=== PATIENT | male | born 1980 | race Caucasian/White ===

== ENCOUNTER 2017-07-12 20:41 | Observation (INO) | payer BC, OTHER ==
[~2017-07-12] VITALS: Ht 175.3 cm; Wt 85.5 kg
[~2017-07-12 20:41] MED LIST: LEVO50TA6 PO; RANI150T3 PO; TRAZ100T29 PO
[2017-07-12] MEDS ORDERED: ASPIRIN 81 MG CHEW PO STA (20:52)
[2017-07-12] MEDS ORDERED: ALUMINUM/MAGNESIUM SUSP 30 ML UDC PO STA (20:52)
--- NOTE | 2017-07-12 20:59 | EMERGENCY ROOM VISIT NOTE ---
History Report prepared by [place]: Falguni Leos Under the Supervision of: Dr. Alexis Thomas D.O. First contact with patient: 20:48 Chief Complaint: CHEST PAIN Stated Complaint: CHEST PAIN, JAW PAIN, LEFT ARM PAIN History of Present Illness The patient is a 36 year old male who presents to the Emergency Room with complaints of persistent chest pain that started around 1730 this evening. He reports his pain started between his left shoulder and elbow and radiated into his chest. He rates his discomfort as a 4/10 in severity and describes it as feeling like "hot pressure". He was sitting down watching TV when his pain started. He admits to some shortness of breath on exertion and admits he is a smoker. He denies any previous cardiac history. He does admit to a similar episode last week, stating he experienced palpitations and nausea. He denies any recent pain or swelling in his legs. He was at the [place] in [place] a few weeks ago. He denies any recent abdominal pain. The patient admits to a family history of hypertension and reports his Father experienced an IN this past spring. He states his only chronic medical issues are GERD, for which he takes Zyrtec, and a history of "gastrointestinal issues". Source of History: patient Onset: 1730 this evening Position: chest Symptom Intensity: 4/10 Quality: pressure (hot pressure ) Timing: other (persistent) Associated Symptoms: No abdominal pain Review of Systems See HPI for pertinent positives & negatives. A total of 10 systems reviewed and were otherwise negative. Past Medical & Surgical Medical Problems: (1) GERD (gastroesophageal reflux disease) Family History Heart disease Hypertension Social History Smoking Status: Current Every Day Smoker Alcohol Use: occasionally Drug Use: none Marital Status: Housing Status: lives with family Occupation Status: employed Current/Historical Medications Scheduled Citalopram Hydrobromide (Celexa), 20 MG PO DAILY Levothyroxine Sodium (Levothyroxine Sodium), 50 MCG PO DAILY Multivitamin (Multivitamin), 1 TAB PO DAILY Ranitidine Hcl (Zantac), 150 MG PO DAILY Trazodone Hcl (Trazodone), 100 MG PO HS Scheduled PRN Melatonin (Melatonin Maximum Strengt), 10 MG PO HS PRN for Insomnia Allergies Coded Allergies: Metronidazole (Verified Adverse Reaction, Intermediate, GI UPSET, 07/12/17) Physical Exam Vital Signs Date Time Temp Pulse Resp B/P (MAP) Pulse Ox O2 Delivery O2 Flow Rate FiO2 07/12/17 23:38 36.5 79 18 136/94 96 Room Air 07/12/17 21:24 103 18 130/84 96 Room Air 07/12/17 21:06 36.9 101 18 141/92 97 Room Air 07/12/17 21:03 97 Room Air 07/12/17 21:03 97 Room Air 07/12/17 21:03 97 Room Air 07/12/17 20:58 105 07/12/17 20:45 36.9 109 18 145/98 98 Room Air Physical Exam GENERAL: Patient is awake, alert, in no acute distress, patient is resting comfortably and showing no signs of anxiety EYES: The conjunctivae are clear. The pupils are round and reactive. EARS, NOSE, MOUTH AND THROAT: The nose is without any evidence of any deformity. Mucous membranes are moist tongue is midline NECK: The neck is nontender and supple. RESPIRATORY: Normal respiratory effort is noted there is no evidence of wheezing rhonchi or rales CARDIOVASCULAR: Regular rate and rhythm noted there no murmurs rubs or gallops normal S1 normal S2 GASTROINTESTINAL: The abdomen is soft. Bowel sounds are present in all quadrants. Abdomen is nontender MUSCULOSKELETAL/EXTREMITIES: There is no evidence of gross deformity full range of motion is noted in the hips and shoulders SKIN: There is no obvious evidence of any rash. There are no petechiae, pallor or cyanosis noted. NEUROLOGIC: Patient is awake alert and oriented x3 Medical Decision & Procedures ER Provider Diagnostic Interpretation: Radiology results as stated below per my review and radiologist interpretation: CHEST ONE VIEW PORTABLE CLINICAL HISTORY: Chest pain. COMPARISON STUDY: No previous studies for comparison. FINDINGS: Lung volumes are normal. Lungs are clear. No pneumothorax or pleural effusion is present. Cardiomediastinal silhouette is normal. Pulmonary vascularity is normal. IMPRESSION: No acute cardiopulmonary findings. Electronically signed by: Gianluca Camp M.D. 07/12/2017 9:16 PM Laboratory Results 07/12/17 20:56 Red Blood Count 5.17, Mean Corpuscular Volume 89.6, Mean Corpuscular Hemoglobin 33.5, Mean Corpuscular Hemoglobin Concent 37.4, Mean Platelet Volume 9.3, Neutrophils (%) (Auto) 45.2, Lymphocytes (%) (Auto) 37.1, Monocytes (%) (Auto) 8.5, Eosinophils (%) (Auto) 8.0, Basophils (%) (Auto) 0.5, Neutrophils # (Auto) 4.40, Lymphocytes # (Auto) 3.61, Monocytes # (Auto) 0.83, Eosinophils # (Auto) 0.78, Basophils # (Auto) 0.05 07/12/17 20:56 Test 07/12/17 20:56 White Blood Count 9.74 K/uL (4.8-10.8) Red Blood Count 5.17 M/uL (4.7-6.1) Hemoglobin 17.3 g/dL (14.0-18.0) Hematocrit 46.3 % (42-52) Mean Corpuscular Volume 89.6 fL (80-100) Mean Corpuscular Hemoglobin 33.5 pg (25-34) Mean Corpuscular Hemoglobin Concent 37.4 g/dl (32-36) Platelet Count 245 K/uL (130-400) Mean Platelet Volume 9.3 fL (7.4-10.4) Neutrophils (%) (Auto) 45.2 % Lymphocytes (%) (Auto) 37.1 % Monocytes (%) (Auto) 8.5 % Eosinophils (%) (Auto) 8.0 % Basophils (%) (Auto) 0.5 % Neutrophils # (Auto) 4.40 K/uL (1.4-6.5) Lymphocytes # (Auto) 3.61 K/uL (1.2-3.4) Monocytes # (Auto) 0.83 K/uL (0.11-0.59) Eosinophils # (Auto) 0.78 K/uL (0-0.5) Basophils # (Auto) 0.05 K/uL (0-0.2) RDW Standard Deviation 41.0 fL (36.4-46.3) RDW Coefficient of Variation 12.6 % (11.5-14.5) Immature Granulocyte % (Auto) 0.7 % Immature Granulocyte # (Auto) 0.07 K/uL (0.00-0.02) Prothrombin Time 11.3 SECONDS (9.0-12.0) Prothromb Time International Ratio 1.1 (0.9-1.1) Activated Partial Thromboplast Time 28.9 SECONDS (21.0-31.0) Partial Thromboplastin Ratio 1.1 Anion Gap 9.0 mmol/L (3-11) Est Creatinine Clear Calc Drug Dose 94.4 ml/min Estimated GFR () 90.9 Estimated GFR (Non- 78.4 BUN/Creatinine Ratio 10.8 (10-20) Calcium Level 8.7 mg/dl (8.5-10.1) Magnesium Level 2.2 mg/dl (1.8-2.4) Total Bilirubin 0.6 mg/dl (0.2-1) Direct Bilirubin 0.2 mg/dl (0-0.2) Aspartate Amino Transf (AST/SGOT) 20 U/L (15-37) Alanine Aminotransferase (ALT/SGPT) 45 U/L (12-78) Alkaline Phosphatase 77 U/L (45-117) Total Creatine Kinase 76 U/L (39-308) Creatine Kinase MB 1.1 ng/ml (0.5-3.6) Creatine Kinase MB Ratio 1.4 (0-3.0) Troponin I < 0.015 ng/ml (0-0.045) Total Protein 7.5 gm/dl (6.4-8.2) Albumin 4.2 gm/dl (3.4-5.0) Lipase 86 U/L (73-393) Laboratory results per my review. Medications Administered Medications (Trade) Dose Ordered Sig/Joslyn Route Start Time Stop Time Status Last Admin Dose Admin Aspirin (Aspirin Chew) 324 mg NOW STAT PO 07/12/17 20:52 07/12/17 20:53 DC 07/12/17 21:01 324 MG Al Hydroxide/Mg Hydroxide (Maalox Susp) 30 ml NOW STAT PO 07/12/17 20:52 07/12/17 20:53 DC 07/12/17 21:01 30 ML Nitroglycerin (Nitrostat Tab) 0.4 mg STK-MED ONCE .ROUTE 07/12/17 21:20 07/12/17 21:21 DC 07/12/17 21:23 0.4 MG Potassium Chloride (Klor-Con M10) 40 meq NOW STAT PO 07/12/17 22:58 07/12/17 23:01 DC 07/12/17 23:17 40 MEQ ECG Indication: chest pain Rate (beats per minute): 107 Rhythm: sinus tachycardia Findings: no ectopy, other (No acute ST segment abnormalities) Change: Repeat EKG on 07/12/17: Normal sinus rhythm, rate of 70, no ectopy, no acute ST segments, decreased rate otherwise no change from earlier tracing. ED Course 2048: The patient was evaluated in room A12. A complete history and physical examination were performed. 2051: Maalox Susp 30 ml PO, Aspirin 324 mg PO. 2119: Nitroglycerin 0.4 mg IV. 2235: I discussed the patients case with Salty Don. The patient will be further evaluated. 2257: Potassium Chloride 40 meq PO. 2314: I reevaluated the patient. He is resting comfortably. I discussed his results and discharge instructions and he verbalized complete understanding and agreement. Medical Decision Prior records/ancillary studies reviewed. Triage Nursing notes reviewed. The patient's history was concerning for chest pain. Differential diagnosis: Etiologies such as cardiac ischemia, aortic dissection, pulmonary embolism, pneumonia, pneumothorax, musculoskeletal, infections, pericarditis, myocarditis , esophageal rupture, gastrointestinal, as well as others were entertained. The patient is a 36-year-old male who presented to the emergency department with left-sided chest pain associated radiation to the left arm and neck. The patient was initially treated with aspirin and Maalox in the emergency department. He had return of his pain with radiation to the neck and diaphoresis. The patient's repeat EKG showed no acute changes. He was treated with nitroglycerin with good relief. I discussed the patient's laboratory and radiographic studies with him. I also discussed the limitations of the emergency department workup for chest pain with him. Given the patient's risk factors and description of pain I [facility]'ve agreed to evaluate the patient in the emergency department for further management and disposition. Medication Reconcilliation Current Medication List: was personally reviewed by me Blood Pressure Screening Patient's blood pressure: Elevated blood pressure Blood pressure disposition: Elevated BP felt to be situational Consults Time Called: 2229 Consulting Physician: Salty Don Returned Call: 2235 I discussed the patients case with Salty Don. The patient will be further evaluated. Impression Primary Impression: Left sided chest pain Scribe Attestation The scribe's documentation has been prepared under my direction and personally reviewed by me in its entirety. I confirm that the note above accurately reflects all work, treatment, procedures, and medical decision making performed by me. Departure Information Dispostion Being Evaluated By Hospitalist Referrals Ronen Dallas M.D. (PCP) Patient Instructions My [facility]
[2017-07-12] MEDS ORDERED: CITA20TA9 PO (21:05)
[2017-07-12] MEDS ORDERED: MELATAB2 PO (21:06)
[2017-07-12 21:07] LABS: BASO % 0.5 %; BASO ABS # 0.05 K/uL (0-0.2); COMPLETE YES; HEMATOCRIT 46.3 % (42-52); IG% 0.7 %; LYMPH % 37.1 %; LYMPH ABS # 3.61 K/uL (1.2-3.4); MEAN CELL VOLUME 89.6 fL (80-100); MEAN CORPUSCULAR HEMOGLOBIN 33.5 pg (25-34); MEAN CORPUSCULAR HGB CONC 37.4 g/dl (32-36); MEAN PLATELET VOLUME 9.3 fL (7.4-10.4); MONO % 8.5 %; NEUT % 45.2 %; PLATELET COUNT 245 K/uL (130-400); RED BLOOD COUNT 5.17 M/uL (4.7-6.1); WHITE BLOOD COUNT 9.74 K/uL (4.8-10.8)
[2017-07-12] MEDS ORDERED: MULT-506 PO (21:07)
[2017-07-12 21:17] LABS: INR 1.1 (0.9-1.1); PARTIAL THROMBOPLASTIN RATIO 1.1; PROTHROMBIN TIME (PATIENT) 11.3 SECONDS (9.0-12.0)
--- NOTE | 2017-07-12 21:17 | DIAGNOSTIC IMAGING REPORT ---
CHEST ONE VIEW PORTABLE CLINICAL HISTORY: Chest pain. COMPARISON STUDY: No previous studies for comparison. FINDINGS: Lung volumes are normal. Lungs are clear. No pneumothorax or pleural effusion is present. Cardiomediastinal silhouette is normal. Pulmonary vascularity is normal. IMPRESSION: No acute cardiopulmonary findings. Electronically signed by: Gianluca Camp M.D. 07/12/2017 9:16 PM Dictated Date/Time: 07/12/2017 9:15 PM
[2017-07-12] MEDS ORDERED: NITROGLYCERIN 0.4 MG SL PER TAB CHARGE ONE (21:20)
[2017-07-12] MEDS ORDERED: NURSING VERBAL MED ORDER ONE (21:30)
[2017-07-12 21:59] LABS: ALT/SGPT 45 U/L (12-78); BLOOD UREA NITROGEN 13 mg/dl (7-18); BUN/CREATININE RATIO 10.8 (10-20); CALCIUM 8.7 mg/dl (8.5-10.1); CARBON DIOXIDE 25 mmol/L (21-32); CHLORIDE 106 mmol/L (98-107); GLUCOSE 91 mg/dl (70-99); POTASSIUM 3.4 mmol/L (3.5-5.1); SODIUM 140 mmol/L (136-145)
[2017-07-12 22:04] LABS: ALKALINE PHOSPHATASE 77 U/L (45-117); AST/SGOT 20 U/L (15-37); CKMB/CK RATIO 1.4 (0-3.0)
[2017-07-12] MEDS ORDERED: NITROGLYCERIN 0.4 MG SL PER TAB CHARGE SL STA (22:23)
[2017-07-12] MEDS ORDERED: POTASSIUM CHLORIDE 10 MEQ TABCR PO STA (22:58)
[2017-07-12 23:10] LABS: MAGNESIUM 2.2 mg/dl (1.8-2.4)
[2017-07-13] VITALS (8 sets, daily range): BP systolic 110–153; BP diastolic 65–99; PULSE 71–80; TEMP 36.6–37; O2SAT 96–98; Ht 175.3 cm; Wt 85.5 kg
[2017-07-13] MEDS ORDERED: TRAZODONE HCL 100 MG TAB PO ONE (00:01)
[2017-07-13] MEDS ORDERED: LORAZEPAM 0.5 MG TAB PO PRN (00:15)
[2017-07-13] MEDS ORDERED: NITROGLYCERIN 0.4 MG SL PER TAB CHARGE SL PRN (00:15)
[2017-07-13] MEDS ORDERED: TRAMADOL HCL 50 MG TAB PO PRN (00:15)
[2017-07-13] MEDS ORDERED: MoRPHine SULFATE 4 MG/ML 1 ML CARP\\VIAL IV PRN (00:15)
[2017-07-13] MEDS ORDERED: ACETAMINOPHEN 325 MG TAB PO PRN (00:15)
[2017-07-13] MEDS ORDERED: OPTIRAY 320 IV PRN (00:15)
[2017-07-13] MEDS ORDERED: ONDANSETRON INJ 2 MG/ML 2 ML VIAL IV PRN (00:15)
[2017-07-13] MEDS ORDERED: IV FLUIDS COMPLETED PRN (00:30)
[2017-07-13] MEDS ORDERED: LACTATED RINGER'S 1000ML 1,000 ML IV SCH (01:15)
--- NOTE | 2017-07-13 01:46 | HISTORY & PHYSICAL EXAMINATION ---
DATE OF ADMISSION: 07/12/2017 PRIMARY CARE DOCTOR: Dr. Dallas. CHIEF COMPLAINT: Chest pain. HISTORY OF PRESENT ILLNESS: History is obtained from patient and records. Medical history significant for mood disorder, hypothyroidism, ongoing tobacco abuse. Recent confinement 2010 for C. diff colitis. Patient was watching television yesterday afternoon, when he felt queasy later noted left-sided chest discomfort going to the arm, pressure like, some shortness of breath, sweatiness. palpitations. Symptoms different from usual reflux symptoms. Usual smoker's cough symptoms. At the Emergency Room some relief of discomfort with Maalox, Nitrostat, and aspirin. While at the Emergency Room, the patient experienced left-sided abdominal cramping and diarrhea, some nausea. Nonbloody. No fever, no chills, no sick contacts, no recent antibiotics. Recent travel to [place] last week. MEDICAL HISTORY: As above. SURGICAL HISTORY: As above. HOME MEDICATIONS: Include trazodone, citalopram, levothyroxine, ranitidine, and melatonin. ALLERGIES: ALLERGIC TO FLAGYL. FAMILY HISTORY: Heart disease. 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 REVIEW OF SYSTEMS: As per HPI, all other ROS negative. PHYSICAL EXAMINATION: VITAL SIGNS: Blood pressure was noted to be 145/98, pulse rate 109, later 79. RR 18, temperature 37, O2 sats 98% on room air. GENERAL: Noted to be slightly anxious, no respiratory distress. SKIN: Normal color, dry. HEENT: Partial alopecia, pink palpebral conjunctivae, dry mucosa. NECK: Supple. No tenderness, midline trachea. CHEST: Clear to auscultation, minimal L anterior chest wall tenderness. CARDIOVASCULAR: regular rate and rhythm, no murmur, palpable lower extremity pulses. ABDOMEN: Some distension, tenderness in the left lower quadrant. EXTREMITIES: No edema, no gross LE deformities, no tenderness. NEUROLOGIC: No gross focality, coherent. LABS: Hemoglobin was noted to be 14, hematocrit 46.3, white blood cell count 10, platelet 245. Sodium 140, potassium 3.3, chloride 106, CO2 of 25, BUN 13, creatinine 1.2. Glucose was noted to be 91. LFTs, lipase normal. Troponin is negative. IMAGING: Chest x-ray, no acute pathology. EKG as per my interpretation, rate 105, sinus tachycardia, no ischemia. CT abdomen and pelvis initial read possible colitis ASSESSMENT: 1. Chest pain possibly from acute viral gastroenteritis ro recurrent cdif Some musculoskeletal component with reproducibility Anxiety contributory rule out acute coronary syndrome with some relief with nitro, left arm radiation and diaphoresis sx 2. Hypokalemia secondary to diarrhea 3. Hypothyroidism, euthyroid as of recent outpatient TSH 4. Ongoing tobacco abuse PLAN: Observation PCU Follow-up troponin. Stress test in the morning if next troponin normal analgesia, anxiolytic prn ASA for now for CAD prevention until ACS ruled out. Stool C. diff. supportive management for gastroenteritis. IVF, replace K Nicotine patch. DVT prophylaxis, Lovenox subcutaneous. Full code. MTDD
[2017-07-13 03:18] LABS: PARTIAL THROMBOPLASTIN RATIO 1.2
[2017-07-13 03:22] LABS: HEMATOCRIT 46.8 % (42-52); MEAN CELL VOLUME 91.2 fL (80-100); MEAN CORPUSCULAR HEMOGLOBIN 31.2 pg (25-34); MEAN CORPUSCULAR HGB CONC 34.2 g/dl (32-36); MEAN PLATELET VOLUME 9.4 fL (7.4-10.4); PLATELET COUNT 223 K/uL (130-400); RED BLOOD COUNT 5.13 M/uL (4.7-6.1); WHITE BLOOD COUNT 7.65 K/uL (4.8-10.8)
[2017-07-13 03:35] LABS: BLOOD UREA NITROGEN 15 mg/dl (7-18); BUN/CREATININE RATIO 13.4 (10-20); CALCIUM 8.6 mg/dl (8.5-10.1); CARBON DIOXIDE 25 mmol/L (21-32); CHLORIDE 107 mmol/L (98-107); CHOLESTEROL 143 mg/dl (0-200); CHOLESTEROL/HDL RATIO 3.6; GLUCOSE 97 mg/dl (70-99); HDL CHOLESTEROL 40 mg/dl; LDL CHOLESTEROL CALCULATED 34 mg/dl; POTASSIUM 4.3 mmol/L (3.5-5.1); SODIUM 140 mmol/L (136-145); TRIGLYCERIDES 344 mg/dl (0-150); VERY LOW DENSITY LIPOPROT CALC 69 mg/dl
[2017-07-13] MEDS ORDERED: IPRATROPIUM BROMIDE NEB SOLN 0.02% 2.5 ML VIAL INH PRN (05:30)
[2017-07-13] MEDS ORDERED: LEVALBUTEROL 1.25MG/0.5ML NEB INH PRN (05:30)
[2017-07-13] MEDS ORDERED: LEVALBUTEROL/IPRATROPIUM NEB INH PRN (05:30)
[2017-07-13] MEDS ORDERED: LEVOTHYROXINE 50 MCG TAB PO SCH (06:00)
--- NOTE | 2017-07-13 07:17 | DIAGNOSTIC IMAGING REPORT ---
ABDOMEN AND PELVIS CT WITH IV CONTRAST CT DOSE: 403.71 mGy.cm HISTORY: Left-sided abdominal pain. TECHNIQUE: Multiaxial CT images of the abdomen and pelvis were performed following the use of intravenous contrast. A dose lowering technique was utilized adhering to the principles of ALARA. COMPARISON STUDY: Abdomen and pelvis CT 02/14/2011. FINDINGS: The lung bases are clear. Increase in size in the sclerotic 2.1 cm lesion within the proximal right femur. The liver, gallbladder, spleen, adrenal glands, and kidneys are unremarkable. Normal pancreas. No retroperitoneal lymphadenopathy. Normal bladder. Normal appendix. Questionable mild thickening versus under distention within the descending colon. No evidence for bowel obstruction. IMPRESSION: 1. Mild thickening versus under distention within the descending colon. This raises the possibility of a nonspecific colitis. 2. Slight increase in size in the sclerotic lesion within the right proximal femur. Electronically signed by: Ollie Parnell M.D. 07/13/2017 7:16 AM Dictated Date/Time: 07/13/2017 7:12 AM
[2017-07-13] MEDS ORDERED: RANITIDINE HCL 150 MG TAB PO SCH (09:00)
[2017-07-13] MEDS ORDERED: ASPIRIN 325 MG ECTAB PO SCH (09:00)
[2017-07-13] MEDS ORDERED: MULTIVITAMIN TAB PO SCH (09:00)
[2017-07-13] MEDS ORDERED: ENOXAPARIN 30 MG/0.3 ML SYR SQ SCH (09:00)
[2017-07-13] MEDS ORDERED: CITALOPRAM 20 MG TAB PO SCH (09:00)
[2017-07-13] MEDS ORDERED: NICOTINE 14 MG/24 HR TDSY TD SCH (09:00)
[2017-07-13 13:30] LABS: URINE APPEARANCE CLEAR (CLEAR); URINE BILIRUBIN NEG (NEG); URINE COLOR YELLOW; URINE NITRITE NEG (NEG); URINE PH 7.5 (4.5-7.5); URINE SPECIFIC GRAVITY 1.023 (1.000-1.030); UROBILINOGEN NEG (NEG); ZZUR CULT IF INDIC CLEAN CATCH NO
[2017-07-13 13:37] LABS: MANUAL MICROSCOPIC REQUIRED? NO; REVIEW REQ? NO
--- NOTE | 2017-07-13 16:15 | Progress Note ---
Internal Med Progress Note Date of Service: Jul 13, 2017. Provider Documentation: SUBJECTIVE: patient denies chest pain or shortness of breath at time of physical exam. OBJECTIVE: Exam: General - no acute distress Eyes- EOMI ENT- no oral or nasal exudates Neck- midline trachea Lungs- clear to auscultation bilaterally Heart- regular rate, chest nontender on palpation Abdomen-soft, nontender, nondistended Extremities- no edema Neuro- no focal neurological deficits ASSESSMENT & PLAN: 36 year old M on antidepressants and on Levothyroxine for hypothyroidism with family history of heart disease at older age who presents with left sided chest pain with radiation to left shoulder. In the ED patient was given aspirin 325 mg and sublingual nitro ABDOMEN AND PELVIS CT WITH IV CONTRAST COMPARISON STUDY: Abdomen and pelvis CT 02/14/2011. FINDINGS: The lung bases are clear. Increase in size in the sclerotic 2.1 cm lesion within the proximal right femur. The liver, gallbladder, spleen, adrenal glands, and kidneys are unremarkable. Normal pancreas. No retroperitoneal lymphadenopathy. Normal bladder. Normal appendix. Questionable mild thickening versus under distention within the descending colon. No evidence for bowel obstruction. IMPRESSION: 1. Mild thickening versus under distention within the descending colon. This raises the possibility of a nonspecific colitis. 2. Slight increase in size in the sclerotic lesion within the right proximal femur. C.diff negative Cardiac telemetry patient has been in normal sinus rhythm and heart rate within normal limits Stress echo Test performed and interpreted by pet sitter: negative stress echo Hypothyroidism on Levothyroxine at home: TSH 3.3 and T4 7.5 Disposition/ diagnosis 1. Atypical chest pain based on negative troponins, negative stress test, and no telemetry events 2. Abdominal discomfort: negative C. diff, possible thickening of descending colon, is unlikely to be inflammation given no significant abdominal findings on CT imaging or on clinical exam 3. Mood disorder: follow up with primary doctor for Celexa and Trazodone 4. Hypothyroidism on Levothyroxine at home: TSH 3.3 and T4 7.5. TSH is somewhat elevated compared to available outpatient records. patient advised to follow up with his primary care doctor if needs Levothyroxine adjustment 5. Follow up with primary care doctor Dr. Gallardo on Wednesday07/19/17 on 11:05 AM Vital Signs: Date Time Temp Pulse Resp B/P (MAP) Pulse Ox O2 Delivery O2 Flow Rate FiO2 10/3/17 15:50 37.0 78 20 142/77 (98) 97 Room Air 07/13/17 12:00 Room Air 07/13/17 11:10 36.7 80 18 132/79 (96) 97 Room Air 07/13/17 08:00 98 Room Air 07/13/17 07:16 37.0 71 16 115/65 (82) 98 Room Air 07/13/17 04:00 96 Room Air 07/13/17 03:35 36.6 71 16 110/66 (81) 96 Room Air 07/13/17 01:00 36.9 75 18 153/99 97 Room Air 07/12/17 23:38 36.5 79 18 136/94 96 Room Air 07/12/17 21:24 103 18 130/84 96 Room Air 07/12/17 21:06 36.9 101 18 141/92 97 Room Air 07/12/17 21:03 97 Room Air 07/12/17 21:03 97 Room Air 07/12/17 21:03 97 Room Air 07/12/17 20:58 105 07/12/17 20:45 36.9 109 18 145/98 98 Room Air Lab Results: Results Past 24 Hours Test 07/12/17 20:56 07/13/17 00:00 07/13/17 02:59 07/13/17 10:57 Range/Units White Blood Count 9.74 7.65 4.8-10.8 K/uL Red Blood Count 5.17 5.13 4.7-6.1 M/uL Hemoglobin 17.3 16.0 14.0-18.0 g/dL Hematocrit 46.3 46.8 42-52 % Mean Corpuscular Volume 89.6 91.2 80-100 fL Mean Corpuscular Hemoglobin 33.5 31.2 25-34 pg Mean Corpuscular Hemoglobin Concent 37.4 34.2 32-36 g/dl Platelet Count 245 223 130-400 K/uL Mean Platelet Volume 9.3 9.4 7.4-10.4 fL Neutrophils (%) (Auto) 45.2 % Lymphocytes (%) (Auto) 37.1 % Monocytes (%) (Auto) 8.5 % Eosinophils (%) (Auto) 8.0 % Basophils (%) (Auto) 0.5 % Neutrophils # (Auto) 4.40 1.4-6.5 K/uL Lymphocytes # (Auto) 3.61 1.2-3.4 K/uL Monocytes # (Auto) 0.83 0.11-0.59 K/uL Eosinophils # (Auto) 0.78 0-0.5 K/uL Basophils # (Auto) 0.05 0-0.2 K/uL RDW Standard Deviation 41.0 42.3 36.4-46.3 fL RDW Coefficient of Variation 12.6 12.7 11.5-14.5 % Immature Granulocyte % (Auto) 0.7 % Immature Granulocyte # (Auto) 0.07 0.00-0.02 K/uL Prothrombin Time 11.3 9.0-12.0 SECONDS Prothromb Time International Ratio 1.1 0.9-1.1 Activated Partial Thromboplast Time 28.9 29.9 21.0-31.0 SECONDS Partial Thromboplastin Ratio 1.1 1.2 Sodium Level 140 140 136-145 mmol/L Potassium Level 3.4 4.3 3.5-5.1 mmol/L Chloride Level 106 107 98-107 mmol/L Carbon Dioxide Level 25 25 21-32 mmol/L Anion Gap 9.0 8.0 3-11 mmol/L Blood Urea Nitrogen 13 15 7-18 mg/dl Creatinine 1.20 1.10 0.60-1.40 mg/dl Est Creatinine Clear Calc Drug Dose 94.4 102.6 ml/min Estimated GFR () 90.9 101.0 Estimated GFR (Non- 78.4 87.1 BUN/Creatinine Ratio 10.8 13.4 10-20 Random Glucose 91 97 70-99 mg/dl Calcium Level 8.7 8.6 8.5-10.1 mg/dl Magnesium Level 2.2 1.8-2.4 mg/dl Total Bilirubin 0.6 0.2-1 mg/dl Direct Bilirubin 0.2 0-0.2 mg/dl Aspartate Amino Transf (AST/SGOT) 20 15-37 U/L Alanine Aminotransferase (ALT/SGPT) 45 12-78 U/L Alkaline Phosphatase 77 45-117 U/L Total Creatine Kinase 76 39-308 U/L Creatine Kinase MB 1.1 0.5-3.6 ng/ml Creatine Kinase MB Ratio 1.4 0-3.0 Troponin I < 0.015 < 0.015 < 0.015 0-0.045 ng/ml Total Protein 7.5 6.4-8.2 gm/dl Albumin 4.2 3.4-5.0 gm/dl Lipase 86 73-393 U/L Urine Color YELLOW Urine Appearance CLEAR CLEAR Urine pH 7.5 4.5-7.5 Urine Specific [place] 1.023 1.000-1.030 Urine Protein NEG NEG Urine Glucose (UA) NEG NEG Urine Ketones NEG NEG Urine Occult Blood NEG NEG Urine Nitrite NEG NEG Urine Bilirubin NEG NEG Urine Urobilinogen NEG NEG Urine Leukocyte Esterase NEG NEG Triglycerides Level 344 0-150 mg/dl Cholesterol Level 143 0-200 mg/dl HDL Cholesterol 40 mg/dl LDL Cholesterol, Calculated 34 mg/dl VLDL Cholesterol, Calculated 69 mg/dl Cholesterol/HDL Ratio 3.6 Thyroid Stimulating Hormone (TSH) 3.300 0.300-4.500 uIu/ml Thyroxine (T4) 7.5 4.5-10.9 mcg/dl Microbiology Results 07/13/17 C.difficile Toxin B Gene (PCR) - Final, Complete No C. difficile toxin B gene detected
--- NOTE | 2017-07-13 16:31 | EXERCISE STRESS ECHO ---
*NOTICE TO RECEIVING [employer] This information is strictly Confidential and protected under [place] law. [place] law prohibits you from making any further disclosure of this information unless further disclosure is expressly permitted by the written consent of the person to whom it pertains or is authorized by law. A general authorization for the release of medical or other information is not sufficient for this purpose. Hospital accepts no responsibility if the information is made available to any other person, INCLUDING THE PATIENT. Interpretation Summary * Name: RANDELL WHITTINGTON Study Date: 07/13/2017 01:38 PM BP: 136/84 mmHg * Patient Location: .2T\S\E218\S\1 HR: 77 * : 1980 (M/d/yyyy) Gender: Male Height: 69 in * Age: 36 yrs Ethnicity: CA Weight: 188 lb * Ordering Physician: Evaristo Landers * Referring Physician: Self, Referred * Performed By: Luisana Serrano [facility] * * Reason For Study: CHEST PAIN * BSA: 2.0 m2 * The exercise echocardiographic examination is normal without resting left ventricular wall motion abnormalities or inducible ischemia. * _ workload achieved. Procedure Details * ECHOEX, CPT #[id number] * ECHO COLOR FLOW, CPT #[id number] * ECHO DOPPLER, CPT #[id number] Left Ventricle * The left ventricle is normal in size. * There is moderate concentric left ventricular hypertrophy. * Left ventricular systolic function is normal. * Ejection Fraction = 60-65%. * Resting wall motion: Normal. Stress wall motion: Appropriate increase in Left ventricular systolic function and decrease in cavity size. No stress induced segmental wall motion abnormalities. Right Ventricle * The right ventricle is normal in size and function. Atria * The left atrial size is normal. * Right atrial size is normal. * No ASD detected; PFO is not assessed. Mitral Valve * The mitral valve anatomy is normal. * There is no mitral valve stenosis. * There is trace mitral regurgitation. Tricuspid Valve * The tricuspid valve anatomy is normal. * There is no tricuspid stenosis. * There is trace tricuspid regurgitation. Aortic Valve * The aortic valve is trileaflet. * No hemodynamically significant valvular aortic stenosis. * No aortic regurgitation is present. Pulmonic Valve * The pulmonic valve is not well visualized. Great Vessels * The aortic root is normal size. Pericardium * There is no pericardial effusion. Stress Parameters * Normal baseline electrocardiogram. * Stress ECG: No ST changes. No arrhythmias. * No arrhythmia were noted with stress. * The stress portion of this study was personally supervised by the undersigned interpreting physician. * Rest heart rate was '77' BPM. * Rest blood pressure was '136/84' * Maximum heart rate achieved was 171 bpm. * Maximum heart rate was 91 % of maximum age-predicted heart rate. * Maximum blood pressure was '205/91' * Total exercise time was '10:00' * Maximum exercise MET level achieved was '11.80' METS * Maximum treadmill speed was '4.20' miles per hour. * Maximum treadmill elevation was '16.00'% grade. MMode 2D Measurements and Calculations IVSd 1.5 cm IVSs 2.0 cm LVIDd 4.6 cm LVIDs 3.2 cm LVPWd 1.2 cm LVPWs 1.7 cm IVS/LVPW 1.3 FS 30.4 % EDV(Teich) 96.3 ml ESV(Teich) 40.5 ml EF(Teich) 57.9 % EDV(cubed) 96.0 ml ESV(cubed) 32.4 ml EF(cubed) 66.3 % % IVS thick 27.0 % % LVPW thick 37.7 % LV mass(C)d 247.7 grams LV mass(C)dI 123.1 grams/m\S\2 LV mass(C)s 235.7 grams LV mass(C)sI 117.1 grams/m\S\2 SV(Teich) 55.7 ml SI(Teich) 27.7 ml/m\S\2 SV(cubed) 63.6 ml SI(cubed) 31.6 ml/m\S\2 Ao root diam 3.4 cm Ao root area 9.3 cm\S\2 ACS 2.5 cm LA dimension 3.2 cm LA/Ao 0.92 LVOT diam 2.1 cm LVOT area 3.4 cm\S\2 Doppler Measurements and Calculations MV E max shivani 71.2 cm/sec MV A max shivani 55.0 cm/sec MV E/A 1.3 MV dec time 0.23 sec Ao V2 max 134.8 cm/sec Ao max PG 7.3 mmHg Ao max PG (full) 2.4 mmHg SONYA(V,A) 2.7 cm\S\2 SONYA(V,D) 2.7 cm\S\2 LV V1 max PG 4.9 mmHg LV V1 max 110.2 cm/sec PA V2 max 142.3 cm/sec PA max PG 8.1 mmHg PI max shivani 180.8 cm/sec PI max PG 13.1 mmHg PI dec slope 192.6 cm/sec\S\2 PI P1/2t 275.0 msec
--- NOTE | 2017-07-13 16:38 | Discharge Instructions ---
Discharge Instructions Date of Service Jul 13, 2017. Admission Reason for Admission: Left Sided Chest Pain Discharge Discharge Diagnosis / Problem: atypical chest pain, hypothyroidism, mood disorder Discharge Goals Goal(s): Decrease discomfort Activity Recommendations Activity Limitations: resume your previous activity . Instructions / Follow-Up Instructions / Follow-Up Disposition/ diagnosis 1. Atypical chest pain based on negative troponins, negative stress test, and no telemetry events 2. Abdominal discomfort: negative C. diff, possible thickening of descending colon, is unlikely to be inflammation given no significant abdominal findings on CT imaging or on clinical exam 3. Mood disorder: follow up with primary doctor for Celexa and Trazodone 4. Hypothyroidism on Levothyroxine at home: TSH 3.3 and T4 7.5. TSH is somewhat elevated compared to available outpatient records. patient advised to follow up with his primary care doctor if needs Levothyroxine adjustment 5. Follow up with primary care doctor Dr. Gallardo on Wednesday07/19/17 on 11:05 AM Current Hospital Diet Patient's current hospital diet: AHA Diet (Heart Healthy) Discharge Diet Recommended Diet: Regular Diet Pending Studies Studies pending at discharge: no Laboratory Results 07/13/17 02:59 07/13/17 02:59 Test 07/12/17 20:56 07/13/17 00:00 07/13/17 02:59 07/13/17 10:57 Immature Granulocyte % (Auto) 0.7 % White Blood Count 9.74 K/uL (4.8-10.8) Red Blood Count 5.17 M/uL (4.7-6.1) 5.13 M/uL (4.7-6.1) Hemoglobin 17.3 g/dL (14.0-18.0) Hematocrit 46.3 % (42-52) Mean Corpuscular Volume 89.6 fL (80-100) 91.2 fL (80-100) Mean Corpuscular Hemoglobin 33.5 pg (25-34) 31.2 pg (25-34) Mean Corpuscular Hemoglobin Concent 37.4 g/dl (32-36) 34.2 g/dl (32-36) Platelet Count 245 K/uL (130-400) Mean Platelet Volume 9.3 fL (7.4-10.4) 9.4 fL (7.4-10.4) Neutrophils (%) (Auto) 45.2 % Lymphocytes (%) (Auto) 37.1 % Monocytes (%) (Auto) 8.5 % Eosinophils (%) (Auto) 8.0 % Basophils (%) (Auto) 0.5 % Neutrophils # (Auto) 4.40 K/uL (1.4-6.5) Lymphocytes # (Auto) 3.61 K/uL (1.2-3.4) Monocytes # (Auto) 0.83 K/uL (0.11-0.59) Eosinophils # (Auto) 0.78 K/uL (0-0.5) Basophils # (Auto) 0.05 K/uL (0-0.2) Immature Granulocyte # (Auto) 0.07 K/uL (0.00-0.02) Prothrombin Time 11.3 SECONDS (9.0-12.0) Prothromb Time International Ratio 1.1 (0.9-1.1) Magnesium Level 2.2 mg/dl (1.8-2.4) Total Bilirubin 0.6 mg/dl (0.2-1) Direct Bilirubin 0.2 mg/dl (0-0.2) Aspartate Amino Transf (AST/SGOT) 20 U/L (15-37) Alanine Aminotransferase (ALT/SGPT) 45 U/L (12-78) Alkaline Phosphatase 77 U/L (45-117) Total Creatine Kinase 76 U/L (39-308) Creatine Kinase MB 1.1 ng/ml (0.5-3.6) Creatine Kinase MB Ratio 1.4 (0-3.0) Total Protein 7.5 gm/dl (6.4-8.2) Albumin 4.2 gm/dl (3.4-5.0) Lipase 86 U/L (73-393) Urine Color YELLOW Urine Appearance CLEAR (CLEAR) Urine pH 7.5 (4.5-7.5) Urine Specific Greer 1.023 (1.000-1.030) Urine Protein NEG (NEG) Urine Glucose (UA) NEG (NEG) Urine Ketones NEG (NEG) Urine Occult Blood NEG (NEG) Urine Nitrite NEG (NEG) Urine Bilirubin NEG (NEG) Urine Urobilinogen NEG (NEG) Urine Leukocyte Esterase NEG (NEG) RDW Standard Deviation 42.3 fL (36.4-46.3) RDW Coefficient of Variation 12.7 % (11.5-14.5) Activated Partial Thromboplast Time 29.9 SECONDS (21.0-31.0) Partial Thromboplastin Ratio 1.2 Anion Gap 8.0 mmol/L (3-11) Est Creatinine Clear Calc Drug Dose 102.6 ml/min Estimated GFR () 101.0 Estimated GFR (Non- 87.1 BUN/Creatinine Ratio 13.4 (10-20) Calcium Level 8.6 mg/dl (8.5-10.1) Triglycerides Level 344 mg/dl (0-150) Cholesterol Level 143 mg/dl (0-200) HDL Cholesterol 40 mg/dl LDL Cholesterol, Calculated 34 mg/dl VLDL Cholesterol, Calculated 69 mg/dl Cholesterol/HDL Ratio 3.6 Thyroid Stimulating Hormone (TSH) 3.300 uIu/ml (0.300-4.500) Troponin I < 0.015 ng/ml (0-0.045) Thyroxine (T4) 7.5 mcg/dl (4.5-10.9) Date/Time Source Procedure Growth Status 07/13/17 00:00 Stool C.difficile Toxin B Gene (PCR) - Final No C. difficile toxin B gene detected Complete Lipid Panel Test 07/13/17 02:59 Range/Units Triglycerides Level 344 H 0-150 mg/dl Cholesterol Level 143 0-200 mg/dl HDL Cholesterol 40 mg/dl Cholesterol/HDL Ratio 3.6 LDL Cholesterol, Calculated 34 mg/dl Medical Emergencies . Who to Call and When: Medical Emergencies: If at any time you feel your situation is an emergency, please call 911 immediately. . Non-Emergent Contact Non-Emergency issues call your: Primary Care Provider (Dr. Gallardo) . . "Provider Documentation" section prepared by Ruddy Hill. . VTE Core Measure Inpt VTE Proph given/why not?: Enoxaparin (Lovenox)SQ
--- NOTE | 2017-07-13 16:42 | Discharge Summary ---
Discharge Summary Date of Service Jul 13, 2017. Discharge Summary Admission Date: Jul 12, 2017 at 23:47 Discharge Date: Jul 13, 2017 Discharge Disposition: Home Principal Diagnosis: atypical chest pain, abdominal discomfort, hypothyroidism on levothyroxine, mood disorder, hypokalemia with potassium repletion Medication Reconciliation Continued Medications: Citalopram Hydrobromide (Celexa) 20 Mg Tab 20 MG PO DAILY, TAB Levothyroxine Sodium (Levothyroxine Sodium) 50 Mcg Tab 50 MCG PO DAILY Melatonin (Melatonin Maximum Strengt) 5 Mg Tab 10 MG PO HS PRN for Insomnia, TAB Multivitamin (Multivitamin) Tab 1 TAB PO DAILY, TAB Ranitidine Hcl (Zantac) 150 Mg Tab 150 MG PO DAILY Trazodone Hcl (Trazodone) 100 Mg Tab 100 MG PO HS, TAB Admission Information HPI (per Admitting provider): CHIEF COMPLAINT: Chest pain. HISTORY OF PRESENT ILLNESS: History is obtained from patient and records. Medical history significant for mood disorder, hypothyroidism, ongoing tobacco abuse. Recent confinement 2010 for C. diff colitis. Patient was watching television yesterday afternoon, when he felt queasy later noted left-sided chest discomfort going to the arm, pressure like, some shortness of breath, sweatiness. palpitations. Symptoms different from usual reflux symptoms. Usual smoker's cough symptoms. At the Emergency Room some relief of discomfort with Maalox, Nitrostat, and aspirin. While at the Emergency Room, the patient experienced left-sided abdominal cramping and diarrhea, some nausea. Nonbloody. No fever, no chills, no sick contacts, no recent antibiotics. Recent travel to [place] last week. MEDICAL HISTORY: As above. SURGICAL HISTORY: As above. HOME MEDICATIONS: Include trazodone, citalopram, levothyroxine, ranitidine, and melatonin. ALLERGIES: ALLERGIC TO FLAGYL. FAMILY HISTORY: Heart disease. 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 REVIEW OF SYSTEMS: As per HPI, all other ROS negative. Physical Exam (per Admitting): PHYSICAL EXAMINATION: VITAL SIGNS: Blood pressure was noted to be 145/98, pulse rate 109, later 79. RR 18, temperature 37, O2 sats 98% on room air. GENERAL: Noted to be slightly anxious, no respiratory distress. SKIN: Normal color, dry. HEENT: Partial alopecia, pink palpebral conjunctivae, dry mucosa. NECK: Supple. No tenderness, midline trachea. CHEST: Clear to auscultation, minimal L anterior chest wall tenderness. CARDIOVASCULAR: regular rate and rhythm, no murmur, palpable lower extremity pulses. ABDOMEN: Some distension, tenderness in the left lower quadrant. EXTREMITIES: No edema, no gross LE deformities, no tenderness. NEUROLOGIC: No gross focality, coherent. Hospital Course 36 year old M on antidepressants and on Levothyroxine for hypothyroidism with family history of heart disease at older age who presents with left sided chest pain with radiation to left shoulder. In the ED patient was given aspirin 325 mg and sublingual nitro ABDOMEN AND PELVIS CT WITH IV CONTRAST COMPARISON STUDY: Abdomen and pelvis CT 02/14/2011. FINDINGS: The lung bases are clear. Increase in size in the sclerotic 2.1 cm lesion within the proximal right femur. The liver, gallbladder, spleen, adrenal glands, and kidneys are unremarkable. Normal pancreas. No retroperitoneal lymphadenopathy. Normal bladder. Normal appendix. Questionable mild thickening versus under distention within the descending colon. No evidence for bowel obstruction. IMPRESSION: 1. Mild thickening versus under distention within the descending colon. This raises the possibility of a nonspecific colitis. 2. Slight increase in size in the sclerotic lesion within the right proximal femur. C.diff negative Cardiac telemetry patient has been in normal sinus rhythm and heart rate within normal limits Stress echo Test performed and interpreted by cook candy: negative stress echo Hypothyroidism on Levothyroxine at home: TSH 3.3 and T4 7.5 Disposition/ diagnosis 1. Atypical chest pain based on negative troponins, negative stress test, and no telemetry events 2. Abdominal discomfort: negative C. diff, possible thickening of descending colon, is unlikely to be inflammation given no significant abdominal findings on CT imaging or on clinical exam 3. Mood disorder: follow up with primary doctor for Celexa and Trazodone 4. Hypothyroidism on Levothyroxine at home: TSH 3.3 and T4 7.5. TSH is somewhat elevated compared to available outpatient records. patient advised to follow up with his primary care doctor if needs Levothyroxine adjustment 5. Follow up with primary care doctor Dr. Gallardo on Wednesday07/19/17 on 11:05 AM Total time spent on discharge = This includes examination of the patient, discharge planning, medication reconciliation, and communication with other providers. Discharge Instructions Disposition/ diagnosis 1. Atypical chest pain based on negative troponins, negative stress test, and no telemetry events 2. Abdominal discomfort: negative C. diff, possible thickening of descending colon, is unlikely to be inflammation given no significant abdominal findings on CT imaging or on clinical exam 3. Mood disorder: follow up with primary doctor for Celexa and Trazodone 4. Hypothyroidism on Levothyroxine at home: TSH 3.3 and T4 7.5. TSH is somewhat elevated compared to available outpatient records. patient advised to follow up with his primary care doctor if needs Levothyroxine adjustment 5. Follow up with primary care doctor Dr. Gallardo on Wednesday07/19/17 on 11:05 AM
[2017-07-13] MEDS ORDERED: TRAZODONE HCL 100 MG TAB PO SCH (21:00)
== END 2017-07-13 17:00 | disposition home or self-care (01) ==
LOC: C.EDB 20:42 → C.2T 23:47 → EDBEDREQ 07-13 00:03 → ENRESERV 07-13 00:11
PROVIDERS: ADMIT Hospitalist; ATTEND Hospitalist
DX: R07.89 Other chest pain (principal); E03.9 Hypothyroidism, unspecified; K21.9 Gastro-esophageal reflux disease without esophagitis; F39 Unspecified mood [affective] disorder; F17.200 Nicotine dependence, unspecified, uncomplicated; Z82.49 Family history of ischemic heart disease and other diseases of the circulatory system; Z79.899 Other long term (current) drug therapy